=== PATIENT | male | born 1995 | race Caucasian/White ===

== ENCOUNTER → 2019-06-17 10:27 | Outpatient (CLI) | payer OTHER, SELFPAY ==
[2014-04-29 13:06] VITALS: BMI 22.8
[2019-06-17 12:20] LABS: Hematocrit 40.5 % (40-54); Hemoglobin 13.8 g/dL (13.0-16.5); Mean Corp Hgb Conc 34.1 g/dL (32-36); Mean Corpuscular Hgb 30.1 pg (27.0-32.0); Mean Corpuscular Volume 88.2 fL (80-94); Mean Platelet Vol. 12.8 fl (6.2-12.0); Platelet Count 188 K/mm3 (150-450); RBC Distribution Width CV 11.8 % (11.6-14.6); RBC Distribution Width SD 37.6 fl (35.1-43.9); Red Blood Count 4.59 M/mm3 (4.6-6.2); White Blood Count 3.7 K/mm3 (4.4-11.0)
[2019-06-18 09:20] LABS: Immunoglobulin G 955 mg/dL (700-1600)
== END ==
PROVIDERS: Family Provider Family Medicine; PCP Family Medicine; Referring Provider Family Medicine
DX: D84.9 Immunodeficiency, unspecified (principal)
CPT/HCPCS: 36415; 82784; 85027

== ENCOUNTER → 2022-12-31 | Outpatient (CLI) | payer OTHER, SELFPAY ==
[2023-01-02 07:08] LABS: Immunoglobulin G 979 mg/dL (603-1613)
[2023-01-02 19:48] LABS: Immunoglobulin A < 5 mg/dL (90-386); Immunoglobulin M < 5 mg/dL (20-172)
== END | disposition home or self-care (01) ==
DX: D80.0 Hereditary hypogammaglobulinemia (principal)
CPT/HCPCS: 36415; 82784